=== PATIENT | male | born 1930 | race Caucasian/White ===

== ENCOUNTER 2018-09-07 09:02 | Inpatient (IN) | payer OTHER, MEDICAID ==
[2018-09-07 09:39] LABS: ADD MAN DIFF? NO
[2018-09-07 09:44] LABS: ABNORMAL IP MESSAGE 1; BASOPHILS % 0.2 % (0.0-2.0); EOSINOPHILS % 0.2 % (0.0-7.0); HEMATOCRIT 36.3 % (42.0-52.0); HEMOGLOBIN 11.8 g/dl (14.0-18.0); LYMPHOCYTES # 0.4 10^3/ul (0.8-2.9); LYMPHOCYTES % 2.4 % (15.0-51.0); MEAN CORPUSCULAR HEMOGLOBIN 32.2 pg (29.0-33.0); MEAN CORPUSCULAR HGB CONC 32.5 g/dl (32.0-37.0); MEAN CORPUSCULAR VOLUME 98.9 fl (82.0-101.0); MEAN PLATELET VOLUME 8.8 fl (7.4-10.4); MONOCYTE # 0.5 10^3/ul (0.3-0.9); NEUTROPHIL # 14.1 10^3/ul (1.6-7.5); NEUTROPHILS % 93.2 % (39.0-77.0); PLATELET COUNT 407 10^3/UL (140-415); RED BLOOD COUNT 3.67 10^6/ul (4.70-6.10)
[2018-09-07 09:44] LABS: WHITE BLOOD COUNT 15.1 10^3/ul (4.8-10.8)
[2018-09-07] MEDS: ACETAMINOPHEN 325 MG TAB PO ×2 (10:00→10:21)
[2018-09-07] MEDS: CEFEPIME 2GM/50 ML (PMX) 50 ML IVPB (10:01)
[2018-09-07 10:03] LABS: INR 1.16; PT RATIO 1.2
[2018-09-07 10:04] LABS: PARTIAL THROMBOPLASTIN TIME 33.6 Sec (23.0-35.0)
[2018-09-07 10:05] LABS: ALANINE AMINOTRANSFERASE 41 IU/L (13-69); ALBUMIN 2.9 g/dl (3.3-4.9); ALBUMIN/GLOBULIN RATIO 0.78; ALKALINE PHOSPHATASE 141 IU/L (42-121); ANION GAP 12 (5-13); ASPARTATE AMINO TRANSFERASE 46 IU/L (15-46); BILIRUBIN,INDIRECT 1.1 mg/dl (0-1.1); BILIRUBIN,TOTAL 1.1 mg/dl (0.2-1.3); BLOOD UREA NITROGEN 24 mg/dl (7-20); CALCIUM 8.8 mg/dl (8.4-10.2); CARBON DIOXIDE 29 mmol/L (21-31); CHLORIDE 93 mmol/L (97-110); CREATININE 1.64 mg/dl (0.61-1.24); GLUCOSE 108 mg/dl (70-220); SODIUM 134 mmol/L (135-144); TOTAL PROTEIN 6.6 g/dl (6.1-8.1)
[2018-09-07] MEDS ORDERED: PIPER-TAZO 3.375 GM IV (PMX) 100 ML IVPB (10:08)
[2018-09-07] MEDS ORDERED: SODIUM CHLORIDE 0.9% 1L BAG IV* (10:08)
[2018-09-07] MEDS ORDERED: VANCOMYCIN 1 GM (PMX) 250 ML IVPB (10:08)
[2018-09-07 10:37] LABS: ADD UMIC YES; UR ASCORBIC ACID NEGATIVE (NEGATIVE); UR BACTERIA MODERATE /HPF (NONE SEEN); UR BILIRUBIN (Dip) NEGATIVE (NEGATIVE); UR BLOOD (Dip) 2+ mg/dL (NEGATIVE); UR CLARITY CLOUDY (CLEAR); UR COLOR YELLOW (YELLOW); UR GLUCOSE (Dip) NEGATIVE (NEGATIVE); UR KETONES (Dip) NEGATIVE (NEGATIVE); UR LEUKOCYTE ESTERASE (Dip) 3+ Leu/ul (NEGATIVE); UR MUCUS FEW /HPF (NONE SEEN); UR NITRITE (Dip) POSITIVE (NEGATIVE); UR RBC 76 /HPF (0-5); UR SPECIFIC GRAVITY (Dip) 1.006 (1.003-1.030); UR TOTAL PROTEIN (Dip) 1+ mg/dl (NEGATIVE); UR UROBILINOGEN (Dip) NEGATIVE (NEGATIVE); UR WBC > 182 /HPF (0-5)
[2018-09-07] MEDS: VANCOMYCIN 1 GM (PMX) 250 ML IVPB (10:51)
[2018-09-07] MEDS ORDERED: ONDANSETRON 4 MG INJ IV ×2 (13:00→14:00)
[2018-09-07] MEDS ORDERED: ACETAMINOPHEN 325 MG TAB PO (13:00)
[2018-09-07] MEDS ORDERED: LORAZEPAM 0.5 MG TAB PO (14:00)
[2018-09-07] MEDS ORDERED: ZOLPIDEM 5 MG TAB PO (14:00)
[2018-09-07] MEDS ORDERED: HYDROCODONE/APAP (5/325) TAB PO (14:00)
[2018-09-07 15:44] LABS: LACTIC ACID 1.6 mmol/L (0.5-2.0)
[2018-09-07] MEDS: SOD CHLORIDE 0.9% 1,000 ML IV (18:01)
[2018-09-07] MEDS ORDERED: ALBUTEROL 0.083% (NEB) 2.5 MG/3 ML AMP NEB (20:00)
[2018-09-07] MEDS ORDERED: HEPARIN 5,000 UNIT/0.5 ML VIAL (20:50)
[2018-09-07] MEDS: TAMSULOSIN (SR) 0.4 MG CAP PO (20:56)
[2018-09-07] MEDS: PIPER-TAZO 2.25 GM (PMX) 50 ML IVPB (20:56)
[2018-09-07] MEDS: MAGNESIUM CITRATE 300 ML BTL PO (20:56)
[2018-09-07] MEDS: HEPARIN SODIUM 5,000 UNIT/ML VIAL SC (20:57)
[2018-09-07 23:35] LABS: CREATINE KINASE 32 IU/L (23-200)
[2018-09-07 23:47] LABS: CK INDEX 3.6; CK-MB 1.14 ng/ml (0.0-2.4); TROPONIN-I 0.071 ng/ml (0.000-0.120)
[2018-09-08] MEDS: ACETAMINOPHEN 325 MG TAB PO ×2 (02:07→16:20)
[2018-09-08] MEDS: SOD CHLORIDE 0.9% 250 ML IV (02:49)
[2018-09-08] MEDS: PIPER-TAZO 2.25 GM (PMX) 50 ML IVPB ×3 (05:28→22:00)
[2018-09-08] MEDS: PANTOPRAZOLE (EC) 40 MG TAB PO (05:28)
[2018-09-08 06:33] LABS: ADD MAN DIFF? NO
[2018-09-08 06:41] LABS: ABNORMAL IP MESSAGE 1; BASOPHILS % 0.2 % (0.0-2.0); EOSINOPHILS # 0.1 10^3/ul (0.0-0.5); EOSINOPHILS % 0.9 % (0.0-7.0); HEMATOCRIT 33.6 % (42.0-52.0); HEMOGLOBIN 10.7 g/dl (14.0-18.0); LYMPHOCYTES # 0.5 10^3/ul (0.8-2.9); MEAN CORPUSCULAR HEMOGLOBIN 32.4 pg (29.0-33.0); MEAN CORPUSCULAR HGB CONC 31.8 g/dl (32.0-37.0); MEAN CORPUSCULAR VOLUME 101.8 fl (82.0-101.0); MEAN PLATELET VOLUME 9.1 fl (7.4-10.4); MONOCYTE # 0.6 10^3/ul (0.3-0.9); MONOCYTES % 6.2 % (0.0-11.0); NEUTROPHIL # 8.6 10^3/ul (1.6-7.5); PLATELET COUNT 376 10^3/UL (140-415); POSITIVE DIFF @See below
[2018-09-08 06:41] LABS: WHITE BLOOD COUNT 9.9 10^3/ul (4.8-10.8)
[2018-09-08 07:02] LABS: CREATINE KINASE 24 IU/L (23-200)
[2018-09-08 07:13] LABS: CK INDEX 3.7; CK-MB 0.88 ng/ml (0.0-2.4); TROPONIN-I 0.061 ng/ml (0.000-0.120)
[2018-09-08] MEDS: SOD CHLORIDE 0.9% 1,000 ML IV ×3 (07:30→22:00)
[2018-09-08 07:32] LABS: PROSTATE SPECIFIC ANTIGEN 6.1 ng/ml (0.0-4.0)
[2018-09-08 08:42] LABS: ANION GAP 9 (5-13); BLOOD UREA NITROGEN 25 mg/dl (7-20); CARBON DIOXIDE 30 mmol/L (21-31); CHLORIDE 99 mmol/L (97-110); CREATININE 1.67 mg/dl (0.61-1.24); GLUCOSE 100 mg/dl (70-220); MAGNESIUM 2.4 mg/dl (1.7-2.5); POTASSIUM 4.6 mmol/L (3.5-5.1); SODIUM 138 mmol/L (135-144)
[2018-09-08] MEDS ORDERED: DOCUSATE SODIUM 100 MG CAP PO (09:00)
[2018-09-08] MEDS ORDERED: NON-FORMULARY/PATIENT OWN MED (Omeprazole* 40 MG) PO (09:00)
[2018-09-08] MEDS ORDERED: HEPARIN 5,000 UNIT/0.5 ML VIAL ×2 (09:01→20:05)
[2018-09-08] MEDS: ESCITALOPRAM 10 MG TAB PO (09:06)
[2018-09-08] MEDS: DOCUSATE SODIUM 250 MG CAP PO (09:06)
[2018-09-08] MEDS: POLYETHYLENE GLYCOL 17 GM PACKET PO (09:06)
[2018-09-08] MEDS: ASPIRIN (EC) 81 MG TAB PO (09:06)
[2018-09-08] MEDS: HEPARIN SODIUM 5,000 UNIT/ML VIAL SC ×2 (09:07→20:18)
[2018-09-08 10:56] LABS: HEMOGLOBIN A1C 5.2 % (0-5.9)
[2018-09-08] MEDS: TAMSULOSIN (SR) 0.4 MG CAP PO (20:17)
[2018-09-09] MEDS: PANTOPRAZOLE (EC) 40 MG TAB PO (05:46)
[2018-09-09] MEDS: PIPER-TAZO 2.25 GM (PMX) 50 ML IVPB ×3 (05:46→21:27)
[2018-09-09 08:23] LABS: ADD MAN DIFF? NO
[2018-09-09 08:30] LABS: ABNORMAL IP MESSAGE 1; BASOPHILS % 0.3 % (0.0-2.0); EOSINOPHILS # 0.3 10^3/ul (0.0-0.5); EOSINOPHILS % 3.1 % (0.0-7.0); HEMATOCRIT 31.8 % (42.0-52.0); HEMOGLOBIN 10.1 g/dl (14.0-18.0); LYMPHOCYTES # 0.5 10^3/ul (0.8-2.9); MEAN CORPUSCULAR HEMOGLOBIN 32.2 pg (29.0-33.0); MEAN CORPUSCULAR HGB CONC 31.8 g/dl (32.0-37.0); MEAN CORPUSCULAR VOLUME 101.3 fl (82.0-101.0); MONOCYTE # 0.5 10^3/ul (0.3-0.9); MONOCYTES % 5.6 % (0.0-11.0); NEUTROPHIL # 7.9 10^3/ul (1.6-7.5); NEUTROPHILS % 85.2 % (39.0-77.0); PLATELET COUNT 393 10^3/UL (140-415); POSITIVE DIFF @See below; RED BLOOD COUNT 3.14 10^6/ul (4.70-6.10); RED CELL DISTRIBUTION WIDTH 12.3 % (11.5-14.5)
[2018-09-09 08:30] LABS: WHITE BLOOD COUNT 9.3 10^3/ul (4.8-10.8)
[2018-09-09] MEDS ORDERED: HEPARIN 5,000 UNIT/0.5 ML VIAL ×2 (08:44→20:52)
[2018-09-09 09:04] LABS: ANION GAP 8 (5-13); BLOOD UREA NITROGEN 20 mg/dl (7-20); CALCIUM 7.9 mg/dl (8.4-10.2); CARBON DIOXIDE 27 mmol/L (21-31); CHLORIDE 103 mmol/L (97-110); CREATININE 1.28 mg/dl (0.61-1.24); GLUCOSE 89 mg/dl (70-220); MAGNESIUM 2.3 mg/dl (1.7-2.5); POTASSIUM 4.2 mmol/L (3.5-5.1); SODIUM 138 mmol/L (135-144)
[2018-09-09] MEDS: DOCUSATE SODIUM 250 MG CAP PO (09:38)
[2018-09-09] MEDS: ASPIRIN (EC) 81 MG TAB PO (09:38)
[2018-09-09] MEDS: POLYETHYLENE GLYCOL 17 GM PACKET PO (09:38)
[2018-09-09] MEDS: HEPARIN SODIUM 5,000 UNIT/ML VIAL SC ×2 (09:40→20:56)
[2018-09-09] MEDS: ESCITALOPRAM 10 MG TAB PO (09:40)
[2018-09-09] MEDS: ACETAMINOPHEN 325 MG TAB PO ×2 (09:42→22:36)
[2018-09-09] MEDS: SOD CHLORIDE 0.9% 1,000 ML IV (15:43)
[2018-09-10] MEDS: SOD CHLORIDE 0.9% 1,000 ML IV (04:13)
[2018-09-10] MEDS: PANTOPRAZOLE (EC) 40 MG TAB PO (05:15)
[2018-09-10] MEDS: PIPER-TAZO 2.25 GM (PMX) 50 ML IVPB ×2 (05:15→13:47)
[2018-09-10 07:01] LABS: ADD MAN DIFF? NO
[2018-09-10 07:08] LABS: ABNORMAL IP MESSAGE 1; BASOPHILS % 0.4 % (0.0-2.0); EOSINOPHILS # 0.2 10^3/ul (0.0-0.5); EOSINOPHILS % 2.6 % (0.0-7.0); HEMATOCRIT 32.4 % (42.0-52.0); HEMOGLOBIN 10.4 g/dl (14.0-18.0); LYMPHOCYTES # 0.5 10^3/ul (0.8-2.9); LYMPHOCYTES % 6.3 % (15.0-51.0); MEAN CORPUSCULAR HEMOGLOBIN 32.2 pg (29.0-33.0); MEAN CORPUSCULAR HGB CONC 32.1 g/dl (32.0-37.0); MEAN CORPUSCULAR VOLUME 100.3 fl (82.0-101.0); MONOCYTE # 0.5 10^3/ul (0.3-0.9); MONOCYTES % 5.6 % (0.0-11.0); NEUTROPHIL # 6.9 10^3/ul (1.6-7.5); NEUTROPHILS % 84.4 % (39.0-77.0); PLATELET COUNT 425 10^3/UL (140-415); POSITIVE DIFF @See below; RED BLOOD COUNT 3.23 10^6/ul (4.70-6.10); RED CELL DISTRIBUTION WIDTH 12.2 % (11.5-14.5)
[2018-09-10 07:08] LABS: WHITE BLOOD COUNT 8.2 10^3/ul (4.8-10.8)
[2018-09-10 07:26] LABS: ANION GAP 7 (5-13); BLOOD UREA NITROGEN 17 mg/dl (7-20); CALCIUM 8.3 mg/dl (8.4-10.2); CARBON DIOXIDE 28 mmol/L (21-31); CHLORIDE 102 mmol/L (97-110); CREATININE 1.11 mg/dl (0.61-1.24); GLUCOSE 99 mg/dl (70-220); POTASSIUM 4.6 mmol/L (3.5-5.1); SODIUM 137 mmol/L (135-144)
[2018-09-10 07:35] LABS: TROPONIN-I 0.029 ng/ml (0.000-0.120)
[2018-09-10] MEDS: POLYETHYLENE GLYCOL 17 GM PACKET PO (09:00)
[2018-09-10] MEDS: DOCUSATE SODIUM 250 MG CAP PO (09:00)
[2018-09-10] MEDS ORDERED: HEPARIN 5,000 UNIT/0.5 ML VIAL (09:29)
[2018-09-10] MEDS: ASPIRIN (EC) 81 MG TAB PO (09:31)
[2018-09-10] MEDS: ESCITALOPRAM 10 MG TAB PO (09:31)
[2018-09-10] MEDS: HEPARIN SODIUM 5,000 UNIT/ML VIAL SC (09:34)
[2018-09-10] MEDS: GUAIFENESIN 20 MG/ML 5ML CUP PO (11:04)
[2018-09-10] MEDS: ALBUTEROL 0.083% (NEB) 2.5 MG/3 ML AMP HHN (11:06)
[2018-09-10] MEDS: ACETAMINOPHEN 325 MG TAB PO (11:06)
[2018-09-10] MEDS: ACETYLCYSTEINE 20% 4 ML VIAL NEB (11:16)
== END 2018-09-10 15:20 | disposition hospice, home (50) | DRG 871 ==
LOC: E/R 09:02 → PP2 12:49
PROVIDERS: Family Medicine
DX: A41.9 Sepsis, unspecified organism (principal); J18.9 Pneumonia, unspecified organism; N17.0 Acute kidney failure with tubular necrosis; N39.0 Urinary tract infection, site not specified; I13.0 Hypertensive heart and chronic kidney disease with heart failure and stage 1 through stage 4 chronic kidney disease, or unspecified chronic kidney disease; I50.30 Unspecified diastolic (congestive) heart failure; Z66 Do not resuscitate; K59.09 Other constipation; K80.20 Calculus of gallbladder without cholecystitis without obstruction; I07.1 Rheumatic tricuspid insufficiency; I27.20 Pulmonary hypertension, unspecified; N40.1 Benign prostatic hyperplasia with lower urinary tract symptoms; R20.0 Anesthesia of skin; K83.8 Other specified diseases of biliary tract; I48.0 Paroxysmal atrial fibrillation; N28.1 Cyst of kidney, acquired; N18.9 Chronic kidney disease, unspecified; Z79.82 Long term (current) use of aspirin; Z87.891 Personal history of nicotine dependence; Z85.46 Personal history of malignant neoplasm of prostate
CPT/HCPCS: 36415; 71045; 76775; 80048; 80053; 81001; 82550; 82553; 82962; 83036; 83605; 83735; 84153; 84154; 84484; 85025; 85610; 85730; 87040; 87086; 93005; 93306; 93971; 94640; 94664; 96365; 96366; 96368; 97110; 97162; 99285-25